=== PATIENT | female | born 1960 | race American Indian/Alaskan Native ===

== ENCOUNTER 2019-03-04 18:03 | Emergency (ER) | payer SELFPAY ==
[2019-03-04] MEDS ORDERED: ASPIRIN 325 MG TAB PO ONE (19:01)
--- NOTE | 2019-03-04 19:08 | Emergency Department Report ---
Blank Doc - Documentation Documentation: 58 Y/O FEMALE SMOKER WITH KNOWN HISTORY OF HTN (OUT OF MEDS TODAY) AND UNDER S OME STRESS DEVELOPED A SEVERE LYNCH AT WORK AND FOUND BP TO BE 250+/120+ ALSO HAD OFF AN ON CHEST PAIN SINCE 1PM. NO SYNCOPE. The patient was seen in triage for HTN Labs/imaging ordered to evaluate for a cause of this complaint. Vital signs reviewed, patient awake and alert in NAD.
[2019-03-04] MEDS ORDERED: cloNIDine 0.2 MG TAB PO STA (19:09)
--- NOTE | 2019-03-04 19:33 | XRay Report ---
CHEST PA AND LATERAL VIEWS INDICATION: Chest Pain. COMPARISON: None. FINDINGS: Support devices: None. Heart: Within normal limits. Lungs/Pleura: No acute pulmonary or pleural findings. IMPRESSION: 1. No significant abnormality. Signer Name: Maximiliano Velazquez MD Signed: 03/04/2019 7:29 PM Workstation Name: [id number]
[2019-03-04] MEDS ORDERED: hydrALAZINE 20 MG/1 ML INJ IV ONE (19:52)
--- NOTE | 2019-03-04 20:08 | Emergency Department Report ---
HPI - General Chief Complaint: High BP Time Seen by Provider: 03/04/19 19:05 - HPI HPI: 58-year-old female presents to the emergency department with a complaint of severely elevated blood pressure despite medication compliance. She also complains of a frontal headache that is currently 7 out of 10 in intensity. She denies any vision change, slurred speech or any neurological deficits. Patient says that she will get some intermittent twinges of midsternal chest pain but currently denies any chest pain at this moment. Also, the patient complained of having some left hand numbness earlier today that has since resolved. The patient took her 25 mg of hydrochlorothiazide and 32 mg of candesartan this morning. She checked her blood pressure earlier when these symptoms began and says that her blood pressure was as high as systolic of 270. She does not currently have a primary care physician. The patient says that she's been having some increased stress at work and may be adding to her symptoms. She is a tobacco smoker but denies any illicit drug use. She drinks one cup of coffee each morning. ED Past Medical Hx - Past Medical History Previous Medical History?: Yes Hx Hypertension: Yes - Surgical History Past Surgical History?: No - Social History Smoking Status: Never Smoker Substance Use Type: None - Medications Home Medications: Home Medications Medication Instructions Recorded Confirmed Last Taken Type hydroCHLOROthiazide [HCTZ] 25 mg PO QDAY #30 tablet 03/05/19 Unknown Rx ED Review of Systems ROS: Stated complaint: HBP/RT HAND NUMB Other details as noted in HPI Comment: All other systems reviewed and negative Constitutional: denies: chills, fever Eyes: denies: eye pain, vision change ENT: denies: ear pain, throat pain Respiratory: denies: cough, shortness of breath Cardiovascular: chest pain (intermittent). denies: palpitations Gastrointestinal: denies: abdominal pain, vomiting Genitourinary: denies: dysuria, discharge Musculoskeletal: denies: back pain, arthralgia Skin: denies: rash, lesions Neurological: headache, numbness (left hand numbness that has since resolved). denies: weakness Physical Exam - Physical Exam Vital Signs: Vital Signs 03/04/19 19:02 Temperature 98.1 F Pulse Rate 69 Respiratory 16 Rate Blood Pressure 259/129 [Left] O2 Sat by Pulse 99 Oximetry Physical Exam: GENERAL: The patient is well-developed well-nourished. HEENT: Normocephalic. Atraumatic. Patient has moist mucous membranes. EYES: Extraocular motions are intact. Pupils equal and reactive to light bila terally. No nystagmus. NECK: Supple. Trachea is midline CHEST/LUNGS: Clear to auscultation. There is no respiratory distress noted. HEART/CARDIOVASCULAR: Regular. There is no tachycardia. ABDOMEN: Abdomen is soft, nontender. Patient has normal bowel sounds. There is no abdominal distention. SKIN: Skin is warm and dry. NEURO: The patient is awake, alert, and oriented. The patient is cooperative. The patient has no focal neurologic deficits. Normal speech. Cranial nerves II through XII grossly intact. No pronator drift. No dysmetria. No facial asymmetry. MUSCULOSKELETAL: There is no tenderness or deformity. There is no limitation range of motion. There is no evidence of acute injury. ED Course Vital Signs 03/04/19 19:02 Temperature 98.1 F Pulse Rate 69 Respiratory 16 Rate Blood Pressure 259/129 [Left] O2 Sat by Pulse 99 Oximetry ED Medical Decision Making - Lab Data Result diagrams: 03/04/19 19:57 03/04/19 19:57 - Radiology Data Radiology results: report reviewed CT head/brain wo con INDICATION / CLINICAL INFORMATION: 58 years Female; HTN, arm numbness. TECHNIQUE: Routine CT head without contrast. All CT scans at this location are performed using CT dose reduction for ALARA by means of automated exposure control. COMPARISON: None. FINDINGS: BRAIN / INTRACRANIAL CONTENTS: No acute hemorrhage, mass effect, midline shift, hydrocephalus, or acute, large territorial infarct. No chronic infarct or atrophy appreciated. There are minimal areas of decreased attenuation in the white matter of the cerebral hemispheres. These are nonspecific findings and may be related to microangiopathy (hypertension, diabetes, atherosclerosis), given the patient's age. CRANIOCERVICAL JUNCTION: No significant abnormality. ORBITS: No significant abnormality of visualized orbits. SINUSES / MASTOIDS: There is mild mucosal thickening in the ethmoids. Small mucous retention cyst/polyp seen in the right maxillary antrum. Mild mucosal thickening seen in both maxillary antra, as well as the sphenoid sinuses. Small mucous retention cyst seen in the left sphenoid sinus, as well. ADDITIONAL FINDINGS: None. IMPRESSION: 1. No focal mass, hemorrhage, hydrocephalus, or acute, large territorial infarct. 2. Sinus disease, as described above. - Medical Decision Making This patient presents to the emergency department with complaint of extremely elevated blood pressure despite taking her blood pressure medications. She also had a frontal headache. At the time of my initial examination she did not have any chest pain but did mention having some twinges of chest pain earlier in the day. She also had complained of having some numbness in her left hand that a lso had since resolved. On examination she does not have any focal, motor or sensory deficits in her cranial nerves are intact. Patient was given a single dose of IV hydralazine and her blood pressure came down to a much more reasonable level. A CT scan of the head without contrast was completed that did not show any bleed, shift, mass, ischemia, or any other acute process. Chest x-ray did not show any acute process. EKG did not show any signs of ST elevation PA. The rest of her labs were unremarkable. She was reevaluated multiple times for multiple hours and says she is feeling greatly improved. The patient was seen ambulatory in the emergency department prior to discharge and she both appears and feels stable. She'll be discharged home to follow up with a primary care physician. She was also given a referral for a local furnace fitter for outpatient follow-up. She was given a refill of her hydrochlorothiazide. She will return to the emergency department with any return of her symptoms or with any acute distress. - Differential Diagnosis hypertensive crisis, tension headache, subarachnoid, CVA Critical Care Time: No Critical care attestation.: If time is entered above; I have spent that time in minutes in the direct care of this critically ill patient, excluding procedure time. ED Disposition Clinical Impression: Hypertensive urgency Headache Qualifiers: Headache type: unspecified Headache chronicity pattern: unspecified pattern Intractability: not intractable Qualified Code(s): R51 - Headache Disposition: DC-01 TO HOME OR SELFCARE Is pt being admited?: No Condition: Stable Instructions: Acute Headache (ED), Hypertension (ED) Additional Instructions: Please follow up with a primary care physician in the next few days. I am also giving you a referral for a local furnace fitter, Dr. Liang, to follow up regarding your previous intermittent chest pains. Please take your blood pressure medications as prescribed. Try and stay away from foods that are high in salt and caffeinated products. Keep a blood pressure log. Return to the emergency department with any return or worsening of your symptoms, or any acute distress. Prescriptions: hydroCHLOROthiazide [HCTZ] 25 mg PO QDAY #30 tablet Referrals: PRIMARY CAREMD [Primary Care Provider] - 2-3 Days HAZEL URRUTIA MD [Staff Physician] - 2-3 Days CAROLYN LIANG MD [Staff Physician] - 2-3 Days [facility] [Outside] - 2-3 Days Time of Disposition: 00:08
[2019-03-04 20:09] LABS: Eosinophils # (Auto) 0.1 K/mm3 (0.0-0.4); Eosinophils % (Auto) 2.2 % (0.0-4.3); Hematocrit 40.1 % (30.3-42.9); Lymphocytes # (Auto) 2.2 K/mm3 (1.2-5.4); Mean Corpuscular HGB Conc 35 % (30-34); Mean Corpuscular Volume 99 fl (79-97); Monocytes # (Auto) 0.4 K/mm3 (0.0-0.8); Monocytes % (Auto) 7.4 % (0.0-7.3); Platelet Count 210 K/mm3 (140-440); Red Blood Count 4.06 M/mm3 (3.65-5.03); Red Cell Distribution Width 13.1 % (13.2-15.2)
[2019-03-04] MEDS ORDERED: ONDANSETRON 4 MG/2 ML INJ ONE (20:28)
[2019-03-04] MEDS ORDERED: SODIUM CHLORIDE 0.9% 1000 ML 1,000 ML IV ONE (20:30)
[2019-03-04] MEDS ORDERED: ONDANSETRON 4 MG/2 ML INJ IV ONE (20:30)
[2019-03-04 20:31] LABS: BUN/Creatinine Ratio 13; Blood Urea Nitrogen 10 mg/dL (7-17); Calcium 9.7 mg/dL (8.4-10.2); Hemolysis Index 8
[2019-03-04] MEDS ORDERED: SODIUM CHLORIDE 0.9% 1000 ML 1,000 ML ONE (20:31)
--- NOTE | 2019-03-04 21:18 | Cat Scan Report ---
CT head/brain wo con INDICATION / CLINICAL INFORMATION: 58 years Female; HTN, arm numbness. TECHNIQUE: Routine CT head without contrast. All CT scans at this location are performed using CT dos e reduction for ALARA by means of automated exposure control. COMPARISON: None. FINDINGS: BRAIN / INTRACRANIAL CONTENTS: No acute hemorrhage, mass effect, midline shift, hydrocephalus, or acu te, large territorial infarct. No chronic infarct or atrophy appreciated. There are minimal areas of decreased attenuation in the white matter of the cerebral hemispheres. The se are nonspecific findings and may be related to microangiopathy (hypertension, diabetes, atheroscle rosis), given the patient's age. CRANIOCERVICAL JUNCTION: No significant abnormality. ORBITS: No significant abnormality of visualized orbits. SINUSES / MASTOIDS: There is mild mucosal thickening in the ethmoids. Small mucous retention cyst/xavi yp seen in the right maxillary antrum. Mild mucosal thickening seen in both maxillary antra, as well as the sphenoid sinuses. Small mucous retention cyst seen in the left sphenoid sinus, as well. ADDITIONAL FINDINGS: None. IMPRESSION: 1. No focal mass, hemorrhage, hydrocephalus, or acute, large territorial infarct. 2. Sinus disease, as described above. Signer Name: Sukhdev Mckeon MD, III Signed: 03/04/2019 9:14 PM Workstation Name: [id number]
[2019-03-04] MEDS ORDERED: KETOROLAC 30 MG/1 ML INJ IV ONE (22:27)
[2019-03-05 00:22] VITALS: BP 142/87
== END 2019-03-05 00:28 | disposition home or self-care (01) ==
LOC: ED 18:03
DX: I16.0 Hypertensive urgency (principal); I10 Essential (primary) hypertension; R51 Headache; F17.200 Nicotine dependence, unspecified, uncomplicated; Z79.899 Other long term (current) drug therapy
CPT/HCPCS: 36415; 70450; 71046; 80048; 84439; 84443; 84484; 85025; 93005; 93010; 96374; 96375; 99285; J0360; J1885; J2405; J7030

== ENCOUNTER 2020-09-24 12:52 | Emergency (ER) | payer SELFPAY ==
[2020-09-24 14:35] VITALS: BP 189/95
--- NOTE | 2020-09-24 17:10 | Emergency Department Report ---
Chief Complaint: High BP Stated Complaint: HTN - Exam Vital Signs: Vital Signs 09/24/20 14:32 Temperature 98.1 F Pulse Rate 74 Respiratory 18 Rate Blood Pressure 189/95 [Right] O2 Sat by Pulse 98 Oximetry MSE screening note: Focused history and physical exam performed. Due to findings the following was ordered: ED Disposition for MSE Disposition: DC-01 TO HOME OR SELFCARE Is pt being admited?: No Does the pt Need Aspirin: No Condition: Stable Instructions: Preventing Hypertension, Hypertension, Adult, [id number] Additional Instructions: Please take your blood pressure medications as been prescribed to you by your primary care provider. Be sure to increase your fluid intake. Referrals: [facility] [Provider Group] - 3-5 Days Forms: Work/School Release Form(ED)
== END 2020-09-24 21:50 | disposition home or self-care (01) ==
LOC: ED 12:52
DX: I10 Essential (primary) hypertension (principal)
CPT/HCPCS: 99281